=== PATIENT | female | born 1965 | race Two or more races ===

== ENCOUNTER 2016-04-07 21:11 | Emergency (ER) | payer MEDICAID, OTHER ==
[~2016-04-07] VITALS: Ht 162.6 cm; Wt 61.2 kg
[2016-04-07] MEDS ORDERED: KETOROLAC TROMETHAMINE INJ 30 MG/ML VIAL IV ONE (22:30)
[2016-04-07] MEDS ORDERED: MORPHINE SULFATE INJ 2 MG/ML DISP.SYRIN IV ONE (22:30)
[2016-04-07] MEDS ORDERED: IV NS 0.9% 1,000 ML BAG IV ONE (22:30)
[2016-04-07] MEDS ORDERED: ONDANSETRON HCL/PF - ER 4 MG/2 ML VIAL IV ONE (22:30)
[2016-04-07] MEDS ORDERED: ONDANSETRON HCL/PF 4 MG/2 ML VIAL ONE (22:39)
[2016-04-07] MEDS ORDERED: MORPHINE SULFATE INJ 4 MG/ML DISP.SYRIN ONE (22:39)
[2016-04-07] MEDS ORDERED: KETOROLAC TROMETHAMINE 15 MG/ML VIAL ONE (22:39)
[2016-04-07] MEDS ORDERED: IV SET PRIMARY 1 EA INFUS.SET MC ONE (22:40)
[2016-04-07] MEDS ORDERED: IV NS 0.9% 1,000 ML ONE (22:40)
[2016-04-07 22:51] LABS: BASOPHILS % (AUTO) 0.5 % (0.0-2.0); DIFF TOTAL % 100 %; EOSINOPHILS # (AUTO) 0.1 /CMM (0.0-0.7); EOSINOPHILS % (AUTO) 1.9 % (0.0-6.0); HEMATOCRIT 40 % (33-45); HEMOGLOBIN 13.2 g/dL (11.5-14.8); LYMPHOCYTES # (AUTO) 1.9 /CMM (0.8-4.8); LYMPHOCYTES % (AUTO) 38.6 % (20.0-44.0); MEAN CORPUSCULAR HEMOGLOBIN 28 PG (26.0-33.0); MEAN CORPUSCULAR HGB CONC 33 g/dl (31.0-36.0); MEAN CORPUSCULAR VOLUME 86 fL (82-100); MONOCYTES # (AUTO) 0.5 /CMM (0.1-1.30); MONOCYTES % (AUTO) 10.4 % (2.0-12.0); NEUTROPHILS # (AUTO) 2.4 /CMM (1.8-8.9); NEUTROPHILS % (AUTO) 48.6 % (43.0-81.0); PLATELET COUNT (AUTO) 252 /CMM (150-450); RED BLOOD CELL COUNT(AUTO) 4.65 MIL/uL (4.0-5.2)
[2016-04-07 23:00] LABS: CALCIUM, SERUM 9.4 mg/dL (8.5-10.1); CREATININE 0.6 mg/dL (0.6-1.3); POTASSIUM 4.3 mmol/L (3.5-5.1)
[2016-04-07 23:42] VITALS: BP 112/68
== END 2016-04-07 23:42 | disposition home or self-care (01) ==
LOC: ER 21:17
DX: G50.0 Trigeminal neuralgia (principal)
CPT/HCPCS: 36415; 80048; 85025; 96361; 96374; 96375; 99284; A4606; J1885; J2270; J2405; J7030; Z7610

== ENCOUNTER 2016-04-09 20:56 | Emergency (ER) | payer OTHER ==
[~2016-04-09] VITALS: Ht 162.6 cm; Wt 59.0 kg
[2016-04-09] MEDS ORDERED: ONDANSETRON 4 MG TAB.RAPDIS SL ONE (22:30)
[2016-04-09] MEDS ORDERED: MORPHINE SULFATE INJ 2 MG/ML DISP.SYRIN IM ONE (22:30)
[2016-04-09] MEDS ORDERED: MORPHINE SULFATE INJ 2 MG/ML DISP.SYRIN ONE (22:39)
[2016-04-09] MEDS ORDERED: MORPHINE SULFATE INJ 4 MG/ML DISP.SYRIN ONE (22:40)
[2016-04-09] MEDS ORDERED: ONDANSETRON 4 MG TAB.RAPDIS ONE (22:40)
[2016-04-09 23:51] VITALS: BP 118/75
== END 2016-04-09 23:00 | disposition home or self-care (01) ==
LOC: ER 21:01
DX: G50.0 Trigeminal neuralgia (principal)
CPT/HCPCS: 96372; 99283; A4606; J2270 ×2; Q0162; Z7610

== ENCOUNTER 2016-11-16 22:51 | Emergency (ER) | payer OTHER ==
[~2016-11-16] VITALS: Ht 152.4 cm; Wt 49.0 kg
--- NOTE | 2016-11-16 23:32 | NUR ---
BB FAMILY; RIGHT SIDED FACE PAIN DENIES TRAUMA. PT AOX3 RR EVEN AND UNLABORED. NO SOB NOTED. NAD NOTED. NO NVD AT THIS TIME. PT GOWNED AND PLACED ON MONITOR. WOLF HIGHTOWER AT BEDSIDE FOR EVAL.
--- NOTE | 2016-11-17 01:05 | NUR ---
WOLF HIGHTOWER AT BEDSIDE SPEAKING TO PT REGARDING RESULTS
--- NOTE | 2016-11-17 01:16 | NUR ---
IV removed. Catheter intact and site benign. Pressure and 4x4 applied to site. No bleeding noted. Patient discharged to home in stable condition. Written and verbal after care instructions given. Patient verbalizes understanding of instruction. ambulatory with a steady gait. instructed not to drive. pt verbalize understanding. accompanied by family
[2016-11-17 01:18] VITALS: BP 137/88
== END 2016-11-17 01:19 | disposition home or self-care (01) ==
LOC: ER 22:55
DX: G50.0 Trigeminal neuralgia (principal)
CPT/HCPCS: 96361; 96374; 96375; 99284; A4606; J1170; J2405 ×2; Z7610